=== PATIENT | female | born 1970 ===

== ENCOUNTER 2021-01-19 12:10 | Day surgery (SDC) | payer MEDICARE, MEDICAID, OTHER ==
[2021-01-17 16:20] LABS: BASOPHILS % (AUTO) 1 % (0-1); EOSINOPHILS % (AUTO) 4 % (1-7); LYMPHOCYTES % (AUTO) 17 % (22-44); MEAN CORPUSCULAR HEMOGLOBIN 29.8 pg (27.0-34.8); MEAN CORPUSCULAR HGB CONC 34.1 g/dL (32.4-35.8); MONOCYTES % (AUTO) 4 % (2-9); NEUTROPHILS % (AUTO) 74 % (42-75); PLATELET COUNT 343 x10^3/uL (130-400); RED BLOOD COUNT 4.68 x10^6/uL (3.82-5.3); RED CELL DISTRIBUTION WIDTH 14.5 % (9.6-15.2)
[2021-01-17 16:21] LABS: ANION GAP 8 mmol/L (5-15); CALCIUM 9.2 mg/dL (8.5-10.1); CHLORIDE 113 mmol/L (98-107); CREATININE 0.86 mg/dL (0.55-1.02)
[2021-01-17 16:22] LABS: INTERNATIONAL NORMALIZED RATIO 1.02 (0.93-1.1); PROTHROMBIN TIME 10.9 Seconds (9.6-11.5)
[2021-01-17 16:30] LABS: MICROSCOPIC INDICATED
[~2021-01-19] VITALS: Ht 154.9 cm; Wt 79.0 kg
[~2021-01-19 12:10] MED LIST: ACET-1600 PO; BUPR150T73 PO; BUSP10TA PO; GINSENG PO; GUAI200T11 PO; LORA10TA75 PO; METH10TA4 PO; MULT-658 PO; ONDA4TAB13 SL
[2021-01-19] MEDS ORDERED: OMNIPAQUE 350 MG/ML, 50 ML BOTTLE ONE (12:31)
[2021-01-19] MEDS ORDERED: FENTANYL PF 250 MCG/5ML ONE (12:34)
[2021-01-19] MEDS ORDERED: MIDAZOLAM 1 MG/ML, 2ML ONE (12:34)
[2021-01-19 12:49] VITALS: BP 116/82
[2021-01-19] MEDS ORDERED: CHLORHEXIDINE 15 ML UDC PO ONE (13:00)
[2021-01-19] MEDS ORDERED: LACTATED RINGERS 1,000 ML IV SCH (13:00)
[2021-01-19] MEDS ORDERED: NEOSTIGMINE 1 MG/ML, 10ML ONE (13:05)
[2021-01-19] MEDS ORDERED: ONDANSETRON 2MG/ML, 2ML ONE (13:05)
[2021-01-19] MEDS ORDERED: ROCURONIUM 10MG/ML,5ML ONE (13:05)
[2021-01-19] MEDS ORDERED: GLYCOPYRROLATE 0.2MG/1ML, 5ML ONE (13:05)
[2021-01-19] MEDS ORDERED: PROPOFOL 10 MG/ML, 20ML ONE (13:05)
[2021-01-19] MEDS ORDERED: CEFAZOLIN 1,000 MG ONE (13:05)
[2021-01-19] MEDS ORDERED: DEXAMETHASONE 4 MG/ML, 1ML ONE (13:05)
[2021-01-19] MEDS ORDERED: PROPOFOL 50 ML ONE (13:06)
[2021-01-19] MEDS ORDERED: LORazepam 2 MG/ML, 1ML IVPush PRN (14:00)
[2021-01-19] MEDS ORDERED: ONDANSETRON 2MG/ML, 2ML IVPush PRN (14:00)
[2021-01-19] MEDS ORDERED: DIPHENHYDRAMINE 50 MG/ML, 1ML IVPush PRN (14:00)
[2021-01-19] MEDS ORDERED: MEPERIDINE/PF 25MG/0.5ML IVPush PRN (14:00)
[2021-01-19] MEDS ORDERED: PROMETHAZINE 25 MG/ML, 1ML IVPush PRN (14:00)
[2021-01-19] MEDS ORDERED: FENTANYL PF 100 MCG/2ML IV PRN (14:00)
[2021-01-19] MEDS ORDERED: METHOCARBAMOL 1,000 MG in DEXTROSE 5% 100 ML IV PRN (14:00)
[2021-01-19] MEDS ORDERED: HYDROcodone/APAP 7.5-325MG/15ML UDC PO PRN (14:00)
[2021-01-19] MEDS ORDERED: HYDROmorphone 1 MG/ML, 1ML INJ IVPush PRN (14:00)
== END 2021-01-19 17:00 | disposition home or self-care (01) ==
LOC: OUT 12:10
PROVIDERS: ATTEND Urology
DX: N20.1 Calculus of ureter (principal); M19.90 Unspecified osteoarthritis, unspecified site; F17.210 Nicotine dependence, cigarettes, uncomplicated; Z20.822 Contact with and (suspected) exposure to COVID-19; Z90.49 Acquired absence of other specified parts of digestive tract; Z79.899 Other long term (current) drug therapy; Z98.890 Other specified postprocedural states
CPT/HCPCS: 36415; 52356; 74018; 80048; 81001; 82360; 85025; 85610; 87077; 87086; 87186; 88300; C1769; C2617; J0690; J1100; J2250; J2405; J2704; J2710; J3010; J7120; U0003; U0005; 76000; Q9967